=== PATIENT | female | born 1995 | race Caucasian/White ===

== ENCOUNTER 2017-03-13 14:59 | Emergency (ER) | payer OTHER ==
[2017-03-13 15:05] VITALS: O2SAT 96
--- NOTE | 2017-03-13 15:32 | EDPHY ---
H & P Stated Complaint: LLQ sharp pain since 1145am. - Personal History LMP (Females 10-55): 8-14 Days Ago Current Tetanus Diphtheria and Acellular Pertussis (TDAP): Yes - Medical/Surgical History Hx Asthma: No Hx Chronic Respiratory Disease: No Hx Diabetes: No Hx Cardiac Disease: No Hx Renal Disease: No Hx Cirrhosis: No Hx Alcoholism: No Hx HIV/AIDS: No Hx Splenectomy or Spleen Trauma: No Other PMH: Denies - Social History Smoking Status: Never smoked HPI/ROS: Chief complaint: Abdominal pain History of present illness: This is a 21-year-old female who presents to the emergency department for evaluation of abdominal pain. Patient reports the onset of symptoms a few hours ago. She describes a sharp pain in the left, lower aspect of her abdomen. She denies precipitating factors. She did take 400 mg of ibuprofen and reports pain significantly improved. At this time pain has almost completely resolved. She denies other associated signs or symptoms including no fevers, no nausea or vomiting, no diarrhea or constipation, no abnormal vaginal bleeding or discharge, no urinary symptoms. She has never had similar. Her last menstrual cycle was approximately 2 weeks ago. She is currently on control does not believe she is . Review of systems: A 10 point review of systems was obtained and other than described above was negative (Mulugeta Cardenas) - Physical Exam Exam: General Appearance: Alert, nontoxic. Eyes: Pupils equal and round no pallor or injection. ENT, Mouth: Mucous membranes moist. Respiratory: There are no retractions, lungs are clear to auscultation. Cardiovascular: Regular rate and rhythm. Gastrointestinal: Abdomen is soft and non tender, no masses, bowel sounds normal. Neurological: Alert and oriented x4. Strength and sensation intact and symmetrical. Skin: Warm and dry, no rashes. Musculoskeletal: Neck is supple non tender. Extremities are symmetrical, full range of motion. Psychiatric: Patient is oriented X 3, there is no agitation. (Mulugeta Cardenas) Constitutional: Initial Vital Signs Temperature (C) 37.1 C 03/13/17 15:00 Heart Rate 107 H 03/13/17 15:00 Respiratory Rate 18 03/13/17 15:00 Blood Pressure 132/79 H 03/13/17 15:00 O2 Sat (%) 96 03/13/17 15:00 O2 Delivery Mode Room Air Allergies/Adverse Reactions: Sulfa (Sulfonamide Antibiotics) Allergy (Verified 03/13/17 15:05) Home Medications: Medication Instructions Recorded Ogestrel Tablet 03/13/17 Medical Decision Making ED Course/Re-evaluation: Patient discussed with my secondary supervising physician Dr. Jackie Phillips. Patient presents to the emergency department for left lower abdominal/pelvic pain. On presentation she is nontoxic. She is afebrile and vital signs are stable. She has a benign abdominal exam. There are no peritoneal signs. Blood studies unremarkable. I believe the urinalysis is likely contaminated, a culture will be obtained before treatment is pursued. Pelvic ultrasound is unremarkable. Given she is afebrile, has unremarkable laboratory studies and benign abdominal exam on serial examinations and ultimately her pain has essentially resolved in the emergency room without pain medication I do not believe further imaging studies of the abdomen including CT scan are warranted. Patient will be discharged home. Asked to follow up with her primary care doctor for recheck. Return precautions are given. Patient voiced understanding and agreement with plan. (Mulugeta Cardenas) The patient was evaluated and managed by the physician assistant prosecuting attorney. I have reviewed this chart and I agree with the findings and plan of care as documented , as indicated by my signature. I am the secondary supervising physician. ( Jackie Phillips) Differential Diagnosis: Included but not limited to gastritis, gastroenteritis, colitis, diverticulitis , urinary tract disease, ovarian cyst, ovarian torsion, pelvic infections of multiple etiologies, with associated complications (Mulugeta Cardenas) - Data Points Laboratory Results: Laboratory Results 03/13/17 16:55 03/13/17 16:55 Microbiology Results: MICROBIOLOGY 03/13/17 Unknown Unspecified Urine Culture - Preliminary Two [place] Types Departure - Departure Disposition: Home, Routine, Self-Care Clinical Impression: Abdominal pain, Anemia Condition: Good Instructions: Abdominal Pain (ED), Anemia (ED) Additional Instructions: Follow-up with your primary care doctor in the next 1-2 days for continued evaluation and care of your discomfort as well as abnormalities seen on laboratory studies, including anemia and the urine culture. If symptoms worsen or new symptoms develop, return to the emergency room for recheck. Referrals: [facility] ROBLES [Other] - As per Instructions ELAINE Matos,. [Clinic] - As per Instructions
[2017-03-13 15:41] LABS: COLOR YELLOW; LEUKOCYTE ESTERASE,URINE TRACE (NEGATIVE); NITRITE,URINE NEGATIVE (NEGATIVE)
[2017-03-13 15:49] LABS: MUCUS 4+ /lpf (NONE-1+)
[2017-03-13 17:06] LABS: % IMMATURE GRANULYOCYTES 0.3 % (0.0-1.1); ABSOLUTE IMMATURE GRANULOCYTES 0.02 10^3/uL (0.00-0.10); ADD DIFF? NO; ADD MORPH? NO; ADD SCAN? NO; ATYPICAL LYMPHOCYTE FLAG 20 (0-99); FRAGMENT RBC FLAG 40 (0-99); HEMATOCRIT 33.6 % (38.0-47.0); HEMOGLOBIN 9.8 g/dL (12.6-16.3); LEFT SHIFT FLG 0 (0-99); LIPEMIA HEMOLYSIS FLAG 70 (0-99); MEAN CELL HEMOGLOBIN 20.5 pg (27.9-34.1); MEAN CELL HEMOGLOBIN CONCENTR. 29.2 g/dL (32.4-36.7); MEAN CELL VOLUME 70.4 fL (81.5-99.8); MEAN PLATELET VOLUME 11.3 fL (8.7-11.7); PLATELET CLUMPS FLAG 10 (0-99); PLATELET COUNT 323 10^3/uL (150-400); RED BLOOD CELL COUNT 4.77 10^6/uL (4.18-5.33); RED CELL DISTRIBUTION WIDTH 16.8 % (11.5-15.2)
[2017-03-13 17:33] LABS: ALANINE AMINOTRANSFERASE 25 IU/L (9-52); ALBUMIN 4.5 g/dL (3.5-5.0); ALKALINE PHOSPHATASE 48 IU/L (38-126); ANION GAP 13 mEq/L (8-16); ASPARTATE AMINOTRANSFERASE 20 IU/L (14-46); BILIRUBIN,TOTAL 0.6 mg/dL (0.1-1.4); BILIRUBIN-CONJUGATED 0.5 mg/dL (0.0-0.5); BILIRUBIN-UNCONJUGATED 0.1 mg/dL (0.0-1.1); CALCIUM 9.7 mg/dL (8.5-10.4); CARBON DIOXIDE 19 mEq/l (22-31); CHLORIDE 106 mEq/L (97-110); CREATININE 0.7 mg/dL (0.6-1.0); GLOMERULAR FILTRATION RATE > 60; GLUCOSE 85 mg/dL (70-100); POTASSIUM 4.1 mEq/L (3.5-5.2); SODIUM 138 mEq/L (134-144); TOTAL PROTEIN 7.4 g/dL (6.3-8.2)
[2017-03-13 17:36] VITALS: BP 126/81; PULSE 85; RESP 16; TEMP 99.7
== END 2017-03-13 18:00 | disposition home or self-care (01) ==
DX: R10.9 Unspecified abdominal pain (principal); D64.9 Anemia, unspecified